=== PATIENT | female | born 1980 | race Caucasian/White ===

== ENCOUNTER 2018-04-25 17:40 | Emergency (ER) | payer BC ==
[2018-04-25] MEDS ORDERED: Sulfameth/Trimethoprim DS 800-160mg TAB ONE (21:11)
== END 2018-04-25 22:46 | disposition home or self-care (01) ==
LOC: ERS 17:40
DX: L02.211 Cutaneous abscess of abdominal wall (principal); L03.311 Cellulitis of abdominal wall; F90.9 Attention-deficit hyperactivity disorder, unspecified type; F17.290 Nicotine dependence, other tobacco product, uncomplicated
CPT/HCPCS: 96365; J3370

== ENCOUNTER 2023-11-13 15:15 | Outpatient (CLI) | payer BC | END 2023-11-13 15:16 | disposition home or self-care (01) | LOC: BICMAMMO 15:15 | PROVIDERS: ATTEND Family Medicine | DX: Z12.31 Encounter for screening mammogram for malignant neoplasm of breast (principal); Z98.82 Breast implant status | CPT/HCPCS: 77063; 77067 ==